=== PATIENT | male | born 1960 | race Hispanic/Latino ===

== ENCOUNTER 2016-07-14 11:29 | Outpatient (CLI) | payer BC ==
[2016-07-14 12:11] LABS: ALT (SGPT) 31 U/L (0-55); AST (SGOT) 18 U/L (5-34); Alkaline Phosphatase 86 U/L (40-150); Anion Gap 13 mmol/L (10-20); BUN (Urea Nitrogen) 17 mg/dL (8.4-25.7); Bilirubin, Total 0.8 mg/dL (0.2-1.2); Calc. Creatinine Clearance 0 mL/min (70-130); Carbon Dioxide 20 mmol/L (22-29); Chloride 108 mmol/L (98-107); Estimated GFR-MDRD 60; Globulin 3.1 g/dL (2.4-3.5); LDL Cholesterol, Calculated 181 mg/dL; Protein, Total 7.5 g/dL (6.0-8.3)
[2016-07-14 12:15] LABS: Albumin - Urine 10 mg/L (< 20 mg/L); Albumin/Creatinine Ratio LESS THAN 30 mg/g (< 30 mg/g); Creatinine, Urine 200 mg/dL (10-300mg/dL)
[2016-07-14 12:16] LABS: #Basophils 0.1 thou/uL (0.0-0.2); #Eosinphils 0.1 thou/uL (0.0-0.7); #Lymphocytes 1.7 thou/uL (1.20-3.40); #Monocytes 0.4 thou/uL (0.11-0.59); %Basophils 1.3 % (0.0-1.0); %Eosinophils 2.3 % (0.0-10.0); %Lymphocytes 31.9 % (21.0-51.0); %Monocytes 7.6 % (0.0-10.0); Hematocrit 48.4 % (42.0-52.0); Mean Platelet Volume 7.6 fL (7.4-10.4); Red Blood Cell (RBC) Count 5.49 mill/uL (4.70-6.10); White Blood Cell (WBC) Count 5.3 thou/uL (4.8-10.8)
== END 2016-07-14 11:30 | disposition home or self-care (01) ==
LOC: NAV LAB 11:29
PROVIDERS: ATTEND Family Medicine
DX: Z11.59 Encounter for screening for other viral diseases (principal); E78.2 Mixed hyperlipidemia; E66.09 Other obesity due to excess calories; R73.01 Impaired fasting glucose
CPT/HCPCS: 36415; 80053; 80061; 82044; 82570; 83036; 84443; 85025; 86803

== ENCOUNTER 2016-10-13 10:33 | Outpatient (CLI) | payer BC ==
[2016-10-13 11:59] LABS: Cardiac Risk 3.9 (Less than 4.5)
== END 2016-10-13 10:34 | disposition home or self-care (01) ==
LOC: NAV LAB 10:33
PROVIDERS: ATTEND Family Medicine
DX: E78.2 Mixed hyperlipidemia (principal)
CPT/HCPCS: 36415; 80061